=== PATIENT | female | born 1990 | race Hispanic/Latino ===

== ENCOUNTER 2019-07-03 22:10 | Emergency (ER) | payer SELFPAY ==
[2019-07-03 23:52] LABS: Pregnancy Test - Urine (BHCG) Negative (Negative); Pregu Control Background? CLEAR/WHITE (CLR/WHITE); Pregu Control Bar Appear? YES (CONTROL BAR); Specific Gravity 1.038 (1.002-1.036)
[2019-07-03 23:53] LABS: Bacteria/HPF None Seen HPF (None Seen); Bilirubin Negative (Negative); Blood, Urine 1+ (Negative); Clarity Clear (Clear); Glucose, Urine (Dipstick) Normal (Negative); Leukocyte Negative Leu/uL (Negative); Mucous/LPF Rare LPF (<2+); Nitrite Negative (Negative); Protein, Urine (Dipstick) 20 mg/dL (Neg-Trace); RBC/HPF 0-3 HPF (0-3); WBC/HPF 0-3 HPF (0-3)
[2019-07-04 00:27] LABS: #Lymphocytes 1.2 thou/uL (1.20-3.40); #Monocytes 0.5 thou/uL (0.11-0.59); #Neutrophils 9.6 thou/uL (1.40-6.50); %Basophils 0.1 % (0.0-1.0); %Eosinophils 0.2 % (0.0-10.0); %Lymphocytes 10.4 % (21.0-51.0); %Monocytes 4.3 % (0.0-10.0); Hemoglobin 11.9 g/dL (12.0-16.0); Mean Corpuscular HGB CONC 33.2 g/dL (32.0-36.0); Mean Corpuscular Hemoglobin 27.5 pg (27.0-31.0); Mean Corpuscular Volume 82.6 fL (78.0-98.0); Mean Platelet Volume 9.1 fL (7.4-10.4); Platelet Count 184 thou/uL (130-400); RBC Distribution Width 13.5 % (11.5-14.5); Red Blood Cell (RBC) Count 4.32 mill/uL (4.20-5.40); White Blood Cell (WBC) Count 11.3 thou/uL (4.8-10.8)
[2019-07-04 00:49] LABS: ALT (SGPT) 16 U/L (8-55); AST (SGOT) 12 U/L (5-34); Alkaline Phosphatase 66 U/L (40-110); Anion Gap 10 mmol/L (10-20); BUN (Urea Nitrogen) 11 mg/dL (7.0-18.7); Bilirubin, Total 0.3 mg/dL (0.2-1.2); Calc. Creatinine Clearance 0 mL/min (70-130); Calcium 8.9 mg/dL (7.8-10.44); Carbon Dioxide 29 mmol/L (22-29); Chloride 103 mmol/L (98-107); Estimated GFR-MDRD Greater than 90; Globulin 3.2 g/dL (2.4-3.5); Glucose 124 mg/dL (70-105); Lipase 12 U/L (8-78); Potassium 3.8 mmol/L (3.5-5.1); Protein, Total 7.2 g/dL (6.0-8.3); Sodium 138 mmol/L (136-145)
[2019-07-04] MEDS ORDERED: Morphine 4 MG/ML VIAL ONE (01:32)
[2019-07-04] MEDS ORDERED: Ondansetron PF 4 MG/2 ML Vial ONE (01:33)
[2019-07-04 03:27] LABS: BHCG - Serum Negative (NEGATIVE); Pregs Control Background? CLEAR/WHITE (CLR/WHITE); Pregs Control Bar Appear? YES (CONTROL BAR)
--- NOTE | 2019-07-04 08:17 | CT ---
PRELIMINARY REPORT/[facility]/EMERGENCY AFTER HOURS PROCEDURE Receipt of this report by the clinical staff was confirmed with MARY CROWLEY MD by Tammy Moore on Jul 04, 2019 01:25:00 CDT. Addendum electronically signed by Cheri Moore on July 04, 2019 1:25:29 AM CDT EXAM: CT Abdomen and Pelvis with Intravenous Contrast CLINICAL HISTORY: ER 2... F29 presents to ED for UTI symptoms that started this morning. Pt reports dysuria and urinary frequency. Pt reports suprapubic tenderness. Pt reports vaginal bleeding TECHNIQUE: Axial computed tomography images of the abdomen and pelvis with intravenous contrast. CONTRAST: With; ISO 370, 100ML COMPARISON: None provided. FINDINGS: LUNG BASES: No basilar airspace consolidation or pleural effusion. LIVER: Normal GALLBLADDER AND BILE DUCTS: Cholelithiasis with intraluminal nitrogen gas. PANCREAS: Unremarkable. SPLEEN: Unremarkable. ADRENAL GLANDS: Unremarkable. KIDNEYS, URETERS, AND BLADDER: Unremarkable. No hydronephrosis or nephrolithiasis. No ureteral or bladder calculi. STOMACH AND BOWEL: No obstruction. No wall thickening. No CT evidence of colitis or acute diverticulitis. APPENDIX: No CT evidence for appendicitis. PERITONEUM: No free fluid. No free air. LYMPH NODES: No lymphadenopathy. REPRODUCTIVE: Heterogeneous right ovarian mass measuring 6.7 x 6.6 x 6.5 cm with adjacent fluid with density of blo od tracking into the right paracolic gutter and perihepatic space. w VASCULATURE: No aortic aneurysm. BONES: No fracture or suspicious osseous abnormality. ABDOMINAL WALL AND SOFT TISSUES: Unremarkable. IMPRESSION: 1. Complex right ovarian mass with adjacent blood products tracking superiorly in the right paracolic gutter and perihepatic space. Differential includes hemorrhagic ovarian mass versus ovarian torsion with hemorrhage. If clinical concern for ovarian torsion, recommend surgical consultation wit h further evaluation with pelvic ultrasound. Recommend additional nonemergent DETHISTLER OPERATOR oncology consultation and consideration of MRI of the pelvis. 2. Cholelithiasis with intraluminal nitrogen gas. ELECTRONICALLY SIGNED BY: Christo Rose DO Jul 04, 2019 1:18:48 AM CDT This report is intended for review by the ordering physician only, in accordance of law. If you recei ve this report in error, please call [facility] at [phone]. FINAL REPORT EXAM: CT ABDOMEN AND PELVIS HISTORY: Abdominal pain. Evaluate for appendicitis. COMPARISON: None. Procedure: Multiple contiguous axial images were obtained and a CT of the abdomen and pelvis with IV contrast. C oronal reformats were performed. FINDINGS: Lower Chest: within normal limits. Vessels: Normal caliber aorta Heart: Normal heart size Abdomen: Portal vein:Patent Gallbladder: Multiple gallstones. Gallbladder is contracted. Nonspecific luminal enhancement. Liver: within normal limits. Pancreas: within normal limits. Spleen: within normal limits. Adrenals: within normal limits. Kidneys: Symmetric enhancement. No obstructive uropathy. Peritoneum: There is evidence of complex perihepatic fluid. Fluid tracks along both paracolic gutters . Bowel: Limited evaluation due to the lack of oral contrast administration. No evidence of bowel obstr uction. Ileocecal junction is unremarkable. Normal caliber appendix. Scattered fecal material in a nondistended, nondilated colon. Mesentery and Retroperitoneum: No enlarged mesenteric or retroperitoneal lymph nodes. Abdominal Wall: within normal limits. Pelvis: Reproductive Organs: Uterus and left adnexa are grossly unremarkable. Hypodensity in the left adnexa measuring 2.1 x 1.8 cm likely represents a complex left ovarian cyst. There is a heterogeneous attenuation mass occupying the right adnexa. Measurements have been given in the initial report by [facility]. There is adjacent complex fluid. Pelvis: No lymphadenopathy or free air. There is complex fluid in the pelvis. Bladder: within normal limits. Bones: within normal limits. IMPRESSION: 1. This report is in agreement with initial report by [facility]. 2. Normal caliber appendix. 3. Complex fluid in the abdomen or pelvis. There is a mixed attenuation mass in the right hemipelvis which is presumed to be of ovarian origin. Correlate for ovarian torsion, ovarian mass with associated hemorrhage. In the appropriate clinical setting, a ruptured ectopic cannot be ex cluded. Transcribed Date/Time: 07/04/2019 9:16 AM
--- NOTE | 2019-07-04 09:02 | ULT ---
PRELIMINARY REPORT/[facility]/EMERGENCY AFTER HOURS PROCEDURE EXAM: US Pelvis, Complete. CLINICAL HISTORY: HX: RT ADNEXAL MASS SEEN ON CT (READ BY [facility]). SEE NOTES ON LAST IMAGE. THANKS TECHNIQUE: Transvaginal and transabdominal pelvic ultrasound (complete) with image documentation. COMPARISON: None provided. FINDINGS: ENDOMETRIUM: Endometrial stripe measures 1.3 cm in thickness. UTERUS/CERVIX: The uterus is within normal limits. RIGHT OVARY: Right ovary is not well defined. Heterogeneous complex mass in the right adnexa measuring up to 6.8 x 3.8 cm. Complex free fluid is again noted adjacent to the right ovary. Blood flow is detected on color flow Doppler without significant blood flow within the heterogeneous mass. LEFT OVARY: Normal appearing left ovary with normal anechoic follicle. FREE FLUID: No free fluid. IMPRESSION: Heterogeneous mass in the right adnexa without internal color flow. Unchanged differential of hemorrh agic ovarian mass versus ovarian torsion. Recommend a surgical consultation if not already obtained. ELECTRONICALLY SIGNED BY: Christo Rose DO Jul 04, 2019 3:04:03 AM CDT This report is intended for review by the ordering physician only, in accordance of law. If you recei ve this report in error, please call [facility] at [phone]. FINAL REPORT Exam: Transabdominal and endovaginal pelvic ultrasound HISTORY:Right adnexal mass, noted on CT COMPARISON: None TECHNIQUE: Transabdominal and endovaginal imaging of the pelvis is performed. Ovaries are interrogate d with grayscale, color flow, Doppler imaging and spectral wave form analysis FINDINGS: Uterus: No myometrial masses. Uterus measurin.3 x 3.3 x 4.6 cm. Endometrium: Homogeneous echotexture. Endometrium diameter: 1.3 cm. . Free fluid: None Right ovary: Normal appearing right ovary is not appreciated. Mixed echotexture mass in the right adn exa measures 6.8 x 3.8 cm. Right ovary measurement: Not applicable. Normal-appearing ovaries not appreciated. Left ovary: Anechoic focus in the left ovary compatible with a dominant follicle measuring 2.2 cm. Left ovary measurements: 2.4 x 3.6 x 2.4 cm Ovarian Doppler: There is vascular flow to left ovary. Heterogeneous mass does not demonstrate internal flow. IMPRESSION: 1. This report is in agreement with this report by [facility]. 2. Heterogeneous mass in the right adnexa without vascular flow. Hemorrhagic mass versus ovarian tors ion. Consider NOTCH MACHINE OPERATOR consultation. Transcribed Date/Time: 07/04/2019 9:20 AM
[2019-07-04] MEDS ORDERED: Iopamidol 370 76% 100 ML VIAL ONE (15:09)
== END 2019-07-04 04:12 | disposition home or self-care (01) ==
LOC: ERS 22:10
DX: N83.8 Other noninflammatory disorders of ovary, fallopian tube and broad ligament (principal); R30.0 Dysuria
CPT/HCPCS: 36415; 51701; 74177; 76856; 80053; 81003; 81015; 81025; 83690; 84703; 85025; 96374; 96375; A4353; J2270; J2405; Q9967

== ENCOUNTER 2020-01-13 09:32 | Outpatient (CLI) | payer OTHER ==
--- NOTE | 2020-01-13 15:12 | ULT ---
OB ULTRASOUND: 01[birth year] HISTORY: female. Evaluate size, dates, and anatomy. TECHNIQUE: Multiplanar gong scale and color Doppler images were obtained in a transabdominal ultrasound. FINDINGS: There is a single live intrauterine with heart rate of 143 beats per minute. A survey was performed which was unremarkable. The head, intracranial structures, heart, stomach, kidneys, um bilical cord, umbilical cord insertion, spine, face and extremities were evaluated and normal. Estima galdino weight is 364 grams. Average age of the fetus based off today's examination is 20 weeks, 4 days. The following measurements were taken and dates based off these measurements are as follows: BPD 4.73 cm 20 weeks, 3 days HC 17.69 cm 20 weeks, 2 days AC 15.95 cm 21 weeks, 1 day FL 3.25 cm 20 weeks, 1 day The placenta is anterior in location without evidence of placenta previa. The cervix is normal in jose gth without focal abnormality. LEIDA is 15.90 cm, which is normal. IMPRESSION: Single live intrauterine with estimated age of 20 weeks, 4 days. POS: [facility]
== END 2020-01-13 09:33 | disposition home or self-care (01) ==
LOC: BICULT 09:32
PROVIDERS: ATTEND Family Medicine
DX: O09.92 Supervision of high risk pregnancy, unspecified, second trimester (principal); Z3A.20 20 weeks gestation of pregnancy
CPT/HCPCS: 76805

== ENCOUNTER 2020-05-26 09:15 | Outpatient (CLI) | payer OTHER ==
[2020-05-26 22:23] LABS: SARS-CoV-2 PCR by NAA Not Detected (NotDetected)
== END 2020-05-26 09:16 | disposition home or self-care (01) ==
LOC: LABBT 09:15
PROVIDERS: ATTEND Family Medicine
DX: Z20.822 Contact with and (suspected) exposure to COVID-19 (principal)
CPT/HCPCS: 87635; U0003; U0005